=== PATIENT | male | born 1960 | race Two or more races ===

== ENCOUNTER 2025-09-16 12:30 | Emergency (ER) | payer OTHER ==
[~2025-09-16] VITALS: Ht 167.6 cm; Wt 70.3 kg
[~2025-09-16 12:30] MED LIST: INTELENCE100 MG; INTELENCE25 MG; ISENTRESS400 MG; THORAZINE25 MG PO; TRUVADA TABLET1 TAB
[2025-09-16] MEDS ORDERED: [UNRECOGNIZED DRUG - OTHER] (13:36)
[2025-09-16] MEDS ORDERED: PLAVIX75 MG PO (13:37)
[2025-09-16] MEDS ORDERED: TOPROL XL25 M1 (13:37)
[2025-09-16] MEDS ORDERED: RAMIPRIL10 MG PO (13:37)
[2025-09-16] MEDS ORDERED: ECOTRIN81 MG PO (13:38)
[2025-09-16] MEDS ORDERED: RAMIPRIL 5 MG CAPSULE PO ONE (14:15)
[2025-09-16] MEDS ORDERED: PROMETHAZINE HCL 25 MG/ML AMPUL IM ONE (14:15)
[2025-09-16] MEDS ORDERED: PROMETHAZINE HCL 25 MG/ML AMPUL ONE (14:27)
[2025-09-16] MEDS ORDERED: BACLOFEN5 MG PO (15:55)
== END 2025-09-16 21:02 | disposition home or self-care (01) ==
LOC: ER 12:30
DX: R06.6 Hiccough (principal); R06.02 Shortness of breath; I10 Essential (primary) hypertension; Z88.1 Allergy status to other antibiotic agents; Z88.3 Allergy status to other anti-infective agents